=== PATIENT | male | born 2000 | race African-American/Black ===

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

== ENCOUNTER 2021-06-19 13:04 | Emergency (ER) | payer MEDICAID, OTHER ==
[2021-06-19] MEDS ORDERED: Ketorolac Tromethamine 30 MG/ML VIAL ONE (14:03)
== END 2021-06-19 14:20 ==
LOC: ERS 13:04
DX: R09.1 Pleurisy (principal); J45.909 Unspecified asthma, uncomplicated
CPT/HCPCS: 71045; 93005; 96374; J1885

== ENCOUNTER 2022-08-15 06:43 | Emergency (ER) | payer SELFPAY ==
[2022-08-15] MEDS ORDERED: diphenhydrAMINE 50 MG/ML VIAL ONE (07:22)
[2022-08-15] MEDS ORDERED: Metoclopramide 10 MG/10 ML UDCUP ONE (07:22)
[2022-08-15] MEDS ORDERED: Metoclopramide HCl 10 MG/2 ML VIAL ONE (07:23)
== END 2022-08-15 08:39 | disposition home or self-care (01) ==
LOC: ERS 06:43
DX: R51.9 Headache, unspecified (principal); I10 Essential (primary) hypertension
CPT/HCPCS: 96365; 96375; J1200; J2765